=== PATIENT | female | born 1970 | race Caucasian/White ===

== ENCOUNTER 2018-01-21 20:22 | Emergency (ER) | payer MEDICAID ==
[~2018-01-21] VITALS: Ht 152.4 cm; Wt 57.0 kg
[2018-01-21 20:27] VITALS: BP 138/85
== END 2018-01-21 21:54 | disposition home or self-care (01) ==
LOC: ED 21:40
DX: S61.216A Laceration without foreign body of right little finger without damage to nail, initial encounter (principal); F17.200 Nicotine dependence, unspecified, uncomplicated; W45.8XXA Other foreign body or object entering through skin, initial encounter; Y93.89 Activity, other specified; Y92.89 Other specified places as the place of occurrence of the external cause; Y99.8 Other external cause status
CPT/HCPCS: 12001; 99284

== ENCOUNTER 2018-02-23 14:57 | Emergency (ER) | payer MEDICAID ==
[~2018-02-23] VITALS: Ht 152.4 cm; Wt 51.0 kg
[2018-02-23 15:07] VITALS: BP 102/70
[2018-02-23] MEDS ORDERED: CITA10TA4 PO (15:18)
[2018-02-23] MEDS ORDERED: IBUP-1623 PO (15:19)
[2018-02-23] MEDS ORDERED: HYDR10TA4 PO (15:19)
[2018-02-23] MEDS ORDERED: ALBUTEROL SULFATE 2.5 MG/3 ML ONE (15:22)
[2018-02-23] MEDS ORDERED: ALBUTEROL/IPRATROPIUM 2.5MG/0.5MG, 3 ML NPPB ONE (15:30)
== END 2018-02-23 16:11 | disposition home or self-care (01) ==
LOC: ED 15:24
DX: R05 Cough (principal); J00 Acute nasopharyngitis [common cold]; F17.200 Nicotine dependence, unspecified, uncomplicated; F32.9 Major depressive disorder, single episode, unspecified
CPT/HCPCS: 71046; 94640; 99283; J7512; J7620

== ENCOUNTER 2018-04-29 06:51 | Emergency (ER) | payer MEDICAID ==
[~2018-04-29] VITALS: Ht 152.4 cm; Wt 52.1 kg
[~2018-04-29 06:51] MED LIST: CITA10TA4 PO; HYDR10TA4 PO; IBUP-1623 PO
[2018-04-29 06:53] VITALS: BP 126/74
--- NOTE | 2018-04-29 07:51 | NUR ---
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
[2018-04-29 07:53] LABS: ALBUMIN 4.2 g/dL (3.4-5.0); ANION GAP 10 mmol/L (5-15); BASOPHILS # (AUTO) 0.01 x10^3/uL (0-0.1); BASOPHILS % (AUTO) 0 % (0-1); CHLORIDE 101 mmol/L (98-107); CREATININE 0.97 mg/dL (0.55-1.02); EOSINOPHILS # (AUTO) 0.01 x10^3/uL (0-0.4); EOSINOPHILS % (AUTO) 0 % (1-7); LYMPHOCYTES # (AUTO) 0.48 x10^3/uL (1-3.4); LYMPHOCYTES % (AUTO) 5 % (22-44); MD NO; MEAN CORPUSCULAR HEMOGLOBIN 30.9 pg (27.0-34.8); MEAN CORPUSCULAR VOLUME 93.6 fL (80-100); MEAN PLATELET VOLUME 7.5 fL (7.4-10.4); MONOCYTES # (AUTO) 0.16 x10^3/uL (0.2-0.8); MONOCYTES % (AUTO) 2 % (2-9); NEUTROPHILS % (AUTO) 93 % (42-75); PLATELET COUNT 386 x10^3/uL (130-400); RED BLOOD COUNT 4.03 x10^6/uL (3.82-5.3); RED CELL DISTRIBUTION WIDTH 14.9 % (9.6-15.2)
[2018-04-29 07:57] LABS: TROPONIN I < 0.015 ng/mL (0.000-0.045)
[2018-04-29] MEDS ORDERED: CHLORDIAZEPOXIDE 25 MG CAPSULE ONE (08:18)
[2018-04-29] MEDS ORDERED: CHLORDIAZEPOXIDE 25 MG CAPSULE PO PRN (08:30)
== END 2018-04-29 08:52 | disposition home or self-care (01) ==
LOC: ED 08:49
DX: R07.89 Other chest pain (principal); J20.9 Acute bronchitis, unspecified; F10.239 Alcohol dependence with withdrawal, unspecified; F17.200 Nicotine dependence, unspecified, uncomplicated
CPT/HCPCS: 36415; 71046; 80048; 82040; 84484; 85025; 93005; 99284

== ENCOUNTER 2019-07-08 19:25 | Emergency (ER) | payer MEDICAID ==
[~2019-07-08] VITALS: Ht 152.4 cm; Wt 55.0 kg
[~2019-07-08 19:25] MED LIST changes: +HYDR-2995 PO; -HYDR10TA4 PO
--- NOTE | 2019-07-08 19:40 | NUR ---
THIS IS A 48 YO F BIB EMS W/ C/O INTERMITTENT R/L UQ PAIN 09/15 X3 MONTHS. DENIES N/V/D/SOB/CP. PT IS TACHYCARDIC, OTHER VS WDL. PT RESSTING ON GURNEY W/ CALL LIGHT IN REACH, CONNECTED TO MONITORING. JANNA KELLY AT BEDSIDE FOR EVAL. AWAITING ORDERS.
[2019-07-08] MEDS ORDERED: MAALOX/HYOSCYAMINE/LIDOCAINE 45 ML BTL ONE (19:43)
--- NOTE | 2019-07-08 19:45 | NUR ---
MED ENRIQUE FROM PHARMACY.
[2019-07-08] MEDS ORDERED: FAMOTIDINE 20 MG TABLET PO ONE (20:00)
[2019-07-08] MEDS ORDERED: MAALOX/HYOSCYAMINE/LIDOCAINE 45 ML BTL PO ONE (20:00)
--- NOTE | 2019-07-08 20:36 | NUR ---
LAB IN ROOM.
[2019-07-08 20:43] LABS: BASOPHILS # (AUTO) 0.07 x10^3/uL (0-0.1); BASOPHILS % (AUTO) 1 % (0-1); EOSINOPHILS # (AUTO) 0.02 x10^3/uL (0-0.4); EOSINOPHILS % (AUTO) 0 % (1-7); LYMPHOCYTES # (AUTO) 2.16 x10^3/uL (1-3.4); LYMPHOCYTES % (AUTO) 33 % (22-44); MD NO; MEAN CORPUSCULAR HEMOGLOBIN 30.4 pg (27.0-34.8); MEAN CORPUSCULAR HGB CONC 32.7 g/dL (32.4-35.8); MEAN PLATELET VOLUME 7.3 fL (7.4-10.4); MONOCYTES % (AUTO) 6 % (2-9); NEUTROPHILS % (AUTO) 60 % (42-75); PLATELET COUNT 460 x10^3/uL (130-400); RED BLOOD COUNT 4.18 x10^6/uL (3.82-5.3); RED CELL DISTRIBUTION WIDTH 17.4 % (9.6-15.2)
[2019-07-08 20:55] LABS: ALANINE AMINOTRANSFERASE 66 U/L (12-78); ALBUMIN 4.2 g/dL (3.4-5.0); ANION GAP 11 mmol/L (5-15); CHLORIDE 101 mmol/L (98-107); CREATININE 0.91 mg/dL (0.55-1.02)
[2019-07-08 20:59] LABS: ALKALINE PHOSPHATASE 99 U/L (45-117); BILIRUBIN,TOTAL 0.5 mg/dL (0.2-1.0); TOTAL PROTEIN 9.3 g/dL (6.4-8.2)
--- NOTE | 2019-07-08 21:12 | NUR ---
ALL TESTS RESULTED. PT IS UP FOR RECHECK AT THIS TIME.
[2019-07-08 21:35] VITALS: BP 129/78
== END 2019-07-08 21:38 | disposition home or self-care (01) ==
LOC: ED 20:23
DX: K29.20 Alcoholic gastritis without bleeding (principal); R10.12 Left upper quadrant pain; R10.13 Epigastric pain; R94.31 Abnormal electrocardiogram [ECG] [EKG]; R05 Cough
CPT/HCPCS: 36415; 80053; 83690; 84703; 85025; 93005; 99284